=== PATIENT | male | born 1975 | race Caucasian/White ===

== ENCOUNTER 2022-02-01 14:20 | Outpatient (REF) | payer OTHER, SELFPAY ==
[2022-02-01 15:08] LABS: Estimated Average Glucose 108 mg/dL; Hemoglobin A1c % 5.4 %
[2022-02-01 15:17] LABS: Alanine Aminotransferase 24 U/L (0-40); Albumin Level 4.6 g/dL (3.5-5.0); Alkaline Phosphatase 84 U/L (39-117); Anion Gap 10 (12-20); Aspartate Amino Transferase 18 U/L (5-37); Bilirubin Total 0.8 mg/dL (0.0-1.0); Blood Urea Nitrogen 17 mg/dL (9-16); Calcium 10.1 mg/dL (8.4-10.2); Carbon Dioxide 30 mmol/L (22-29); Chloride 105 mmol/L (96-108); Cholesterol 244 mg/dL; Estimated Glomerular Filt Rate > 60; Glucose Random 91 mg/dL (60-115); HDL Cholesterol 48 mg/dL; LDL Cholesterol Calculated 171 mg/dl; Potassium 4.4 mmol/L (3.3-5.1); Sodium 141 mmol/L (135-145); Total Protein 7.5 g/dL (6.5-8.0); Triglycerides 129 mg/dL
[2022-02-01 15:41] LABS: Free T4 (Free Thyroxine) 0.89 ng/dL (0.71-1.85); Thyroid Stimulating Hormone 1.49 uIU/mL (0.32-4.0); Vitamin D 25-OH Total 30.4 ng/mL (>30)
[2022-02-01 15:51] LABS: Folate 10.2 ng/mL (> or = 4.0); Vitamin B12 166 pg/mL (200-900)
== END 2022-02-01 14:21 | disposition home or self-care (01) ==
LOC: HO.LAB 14:20
PROVIDERS: PCP Internal Medicine; Visit Provider Internal Medicine
DX: E78.00 Pure hypercholesterolemia, unspecified (principal); T50.Z15A Adverse effect of immunoglobulin, initial encounter
CPT/HCPCS: 36415; 80053; 80061; 82306; 82607; 82746; 83036; 84439; 84443

== ENCOUNTER 2022-02-04 18:49 | Emergency (ER) | payer OTHER, SELFPAY ==
--- NOTE | ~2022-02-04 | CT_ITS ---
EXAMINATION: CT HEAD WITHOUT CONTRAST CLINICAL INFORMATION: Dizziness COMPARISON: None TECHNIQUE: Contiguous axial imaging was performed from the skull base to vertex without intravenous administration of contrast. This CT examination was performed using dose optimization techniques as appropriate, variously including the following: *Automated exposure control *Adjustment of mA and/or kV according to patient size (this includes techniques or standardized protocols for targeted exams where dose is matched to indication/reason for exam; i.e. extremities or head) *Use of iterative reconstruction technique DLP: 760 mGy-cm FINDINGS: There is no evidence of acute intracranial hemorrhage or territorial infarction. No abnormal mass effect or midline shift is seen. Alfonso to white matter differentiation is well preserved. No extra-axial fluid collections are identified. The ventricles are normal in size. Small area of chronic encephalomalacia within the left frontal lobe anteriorly. Old left frontal craniotomies. Osseous structures otherwise unremarkable.. The mastoid air cells and visualized portions of the paranasal sinuses are well aerated. CT/CT head/brain wo con IMPRESSION: No acute intracranial pathology.
[2022-02-04 18:56] VITALS: BP 149/84; PULSE 96; RESP 18; TEMP 36.8; O2SAT 98; BMI 29.0
--- NOTE | 2022-02-04 19:00 | ECG_ITS ---
Test Reason : DIZZINESS Blood Pressure : / mmHG Vent. Rate : 083 BPM Atrial Rate : 083 BPM P-R Int : 162 ms QRS Dur : 094 ms QT Int : 364 ms P-R-T Axes : 057 025 027 degrees QTc Int : 427 ms Normal sinus rhythm with sinus arrhythmia Normal ECG No previous ECGs available Referred By: Generic ED Physician Electronically Signed By:EDU ZAYAS
[2022-02-04 19:11] LABS: MANUAL DIFF FLAG NO
[2022-02-04 19:12] LABS: Basophils Absolute Auto 0.1 X10*3/uL (0.0-0.2); Basophils Percent Auto 0.8 % (0-2); Eosinophils Absolute Auto 0.1 X10*3/uL (0.0-0.4); Eosinophils Percent Auto 1.3 % (0-4); Hematocrit 43.1 % (42.0-52.0); Hemoglobin 14.7 g/dl (14.0-18.0); Imm Gran Abs Auto 0.01 X10*3/uL (0.00-0.03); Imm Gran Pct Auto 0.1 % (0.0-0.4); Lymphocytes Absolute Auto 2.5 X10*3/uL (1.2-4.9); Lymphocytes Percent Auto 28.8 % (20-40); Mean Corpuscular HGB Conc 34.1 g/dl (31.0-36.0); Mean Corpuscular Hemoglobin 30.1 pg (27.0-33.0); Mean Corpuscular Volume 88.3 fL (80.0-98.0); Mean Platelet Volume 10.2 fL (9.4-12.4); Monocytes Absolute Auto 0.5 X10*3/uL (0.1-1.2); Neutrophils Absolute Auto 5.4 x10*3/uL (2.0-8.3); Platelet Count 288 X10*3/uL (160-400); Red Blood Count 4.88 X10*6/uL (4.60-5.80); Red Cell Distribution Width 12.1 % (11.0-16.0); White Blood Count 8.5 X10*3/uL (4.8-10.8)
[2022-02-04 19:26] LABS: Anion Gap 14 (12-20); Blood Urea Nitrogen 12 mg/dL (9-16); Calcium 10.2 mg/dL (8.4-10.2); Carbon Dioxide 28 mmol/L (22-29); Chloride 105 mmol/L (96-108); Creatinine Clr Calc Pharmacy 96.5; Estimated Glomerular Filt Rate > 60; Glucose Random 92 mg/dL (60-115); Potassium 4.1 mmol/L (3.3-5.1); Sodium 143 mmol/L (135-145)
[2022-02-04 19:33] LABS: Troponin-I High Sensitivity < 3.5 ng/L (<3.5-35.0)
--- NOTE | 2022-02-04 22:56 | PC.NURSE ---
patient ambulated fine to room from waiting room . reports an episode of pressure in head that eventually went away . Had another episode of head pressure that had some dizziness that happened today .
--- NOTE | 2022-02-04 23:12 | ED_ITS ---
HPI - Dizziness General Chief Complaint: Dizziness Stated Complaint: Head pressure Time Seen by Provider: 02/04/22 23:12 Source: patient Mode of arrival: ambulatory Limitations: no limitations History of Present Illness HPI Narrative: 2 nights of lightheaded and pressure. Patient does not suffer from headaches, no history of vertigo. Has a long history of anxiety. He is anxious about his ultrasound of his axilla for adenopathy. MD elicited complaint: lightheadedness Onset (ago): day(s) Timing: gradual onset Associated symptoms: denies other symptoms Related Data Home Medications Medication Instructions Recorded Confirmed valacyclovir 1 gram tablet 1,000 mg PO DAILY PRN 01/28/22 01/28/22 (Valtrex) Previous Rx's Medication Instructions Recorded cyanocobalamin (vitamin B-12) 1,000 mcg PO DAILY #30 cap 02/01/22 1,000 mcg capsule Allergies Allergy/AdvReac Type Severity Reaction Status Date / Time bee pollen [BEE STINGS] Allergy Unknown SWELLING Unverified 07/27/20 18:32 PMFSH Past Medical History Medical History Epidural hematoma HSV-1 infection Lyme disease Family History Family History Mother Mental illness in member of household Father Stomach cancer Brother No problems noted. Brother Substance abuse Maternal Aunt Bone cancer Social History Social History Housing: House Alcohol intake: never Patient Tobacco Use Status: Never used Tobacco e-Cigarette/Vaping Use: Never Used Second Hand Smoke Exposure: No Advance Directives: No Advance Directives Information Provided: No service: Yes Current occupational status: employed Current occupational exposures/hazards: No Physical Exam Vital Signs: Vital Signs: Last Vital Signs Temp 98.3 F 02/04/22 18:56 Pulse 87 02/05/22 00:04 Resp 18 02/04/22 18:56 BP 129/80 02/05/22 00:04 Pulse Ox 98 02/04/22 18:56 BMI result Body Mass Index 29.0 Course Reevaluation(s) Reevaluation #1: CT of brain, orthostatics negative, no obvious reasons for dizziness. Will dc patient and have him follow up with PMD Time: 00:39 [facility] - Dizziness Lab Data Result diagrams: 02/04/22 19:06 02/04/22 19:06 Labs: Lab Results 02/04/22 02/04/22 02/04/22 Range/Units 19:06 19:06 19:06 WBC 8.5 (4.8-10.8) X10*3/uL RBC 4.88 (4.60-5.80) X10*6/uL Hgb 14.7 (14.0-18.0) g/dl Hct 43.1 (42.0-52.0) % MCV 88.3 (80.0-98.0) fL MCH 30.1 (27.0-33.0) pg MCHC 34.1 (31.0-36.0) g/dl RDW 12.1 (11.0-16.0) % Plt Count 288 (160-400) X10*3/uL MPV 10.2 (9.4-12.4) fL Immature Gran % (Auto) 0.1 (0.0-0.4) % Neut % (Auto) 63.0 (45-73) % Lymph % (Auto) 28.8 (20-40) % Schuyler % (Auto) 6.0 (2-11) % Eos % (Auto) 1.3 (0-4) % Baso % (Auto) 0.8 (0-2) % Lymph # (Auto) 2.5 (1.2-4.9) X10*3/uL Schuyler # (Auto) 0.5 (0.1-1.2) X10*3/uL Eos # (Auto) 0.1 (0.0-0.4) X10*3/uL Baso # (Auto) 0.1 (0.0-0.2) X10*3/uL Abs Immat Gran (auto) 0.01 (0.00-0.03) X10*3/uL Absolute Neuts (auto) 5.4 (2.0-8.3) x10*3/uL Absolute Nucleated RBC 0.000 (0.0-0.012) X10*3/uL Nucleated RBC % (auto) 0.0 (0.0-0.2) /100WBC Sodium 143 (135-145) mmol/L Potassium 4.1 (3.3-5.1) mmol/L Chloride 105 (96-108) mmol/L Carbon Dioxide 28 (22-29) mmol/L Anion Gap 14 (12-20) BUN 12 (9-16) mg/dL Creatinine 0.99 (0.5-1.4) mg/dL Estim Creat Clear Calc 96.5 Estimated GFR > 60 Random Glucose 92 (60-115) mg/dL Calcium 10.2 (8.4-10.2) mg/dL Troponin I High Sens < 3.5 (<3.5-35.0) ng/L Imaging Data CT scan - head: Radiologist's impression: FINDINGS: There is no evidence of acute intracranial hemorrhage or territorial infarction. No abnormal mass effect or midline shift is seen. Alfonso to white matter differentiation is well preserved. No extra-axial fluid collections are identified. The ventricles are normal in size. Small area of chronic encephalomalacia within the left frontal lobe anteriorly. Old left frontal craniotomies. Osseous structures otherwise unremarkable.. The mastoid air cells and visualized portions of the paranasal sinuses are well aerated. ? CT/CT head/brain wo con IMPRESSION: No acute intracranial pathology. ECG Data Attestation: I personally reviewed and interpreted this ECG as follows: Interpretation: normal sinus rate of 83, no st or twave changes Discharge Plan Discharge Clinical Impression: Dizziness Patient Disposition: Home, Self-Care Instructions: Dizziness (ED), Lightheadedness (ED) Prescriptions: No Action cyanocobalamin (vitamin B-12) 1,000 mcg capsule 1,000 mcg PO DAILY Qty: 30 3RF valacyclovir [Valtrex] 1 gram tablet 1,000 mg PO DAILY PRN0RF Label Comments: hsv I Referrals: Po,eY Crowder MD [Primary Care Provider] - 5 days
[2022-02-05] VITALS: BP 132/80; PULSE 71
[2022-02-05 00:02] VITALS: BP 137/85; PULSE 73
[2022-02-05 00:04] VITALS: BP 129/80; PULSE 87
== END 2022-02-05 01:00 | disposition home or self-care (01) ==
PROVIDERS: Emergency Provider Emergency Medicine; PCP Internal Medicine
DX: R42 Dizziness and giddiness (principal); F41.9 Anxiety disorder, unspecified
CPT/HCPCS: 36415; 70450; 80048; 84484; 85025; 93005; 99284

== ENCOUNTER 2022-02-08 15:34 | Outpatient (REF) | payer OTHER, SELFPAY ==
--- NOTE | ~2022-02-08 | US_ITS ---
EXAMINATION: ULTRASOUND EXTREMITY NONVASCULAR CLINICAL INFORMATION: Bilateral adnexal masses COMPARISON: None TECHNIQUE: Doppler, color and grayscale evaluation of the bilateral adnexa using a linear transducer FINDINGS: No adenopathy or soft tissue mass is seen. US/US extremity nonvascular IMPRESSION: No abnormality seen by ultrasound.
== END 2022-02-08 15:35 | disposition home or self-care (01) ==
LOC: HO.HMGCX 15:34
PROVIDERS: Visit Provider Internal Medicine
DX: R22.30 Localized swelling, mass and lump, unspecified upper limb (principal)
CPT/HCPCS: 76882

== ENCOUNTER 2022-10-04 13:09 | Outpatient (REF) | payer OTHER, SELFPAY ==
[2022-10-04 14:27] LABS: Alanine Aminotransferase 25 U/L (0-40); Albumin Level 4.3 g/dL (3.5-5.0); Alkaline Phosphatase 96 U/L (39-117); Anion Gap 13 (12-20); Aspartate Amino Transferase 22 U/L (5-37); Bilirubin Total 0.7 mg/dL (0.0-1.0); Blood Urea Nitrogen 15 mg/dL (9-16); Calcium 9.7 mg/dL (8.4-10.2); Carbon Dioxide 30 mmol/L (22-29); Chloride 103 mmol/L (96-108); Cholesterol 255 mg/dL; Estimated Glomerular Filt Rate > 60; Glucose Random 80 mg/dL (60-115); HDL Cholesterol 51 mg/dL; LDL Cholesterol Calculated 176 mg/dl; Potassium 4.3 mmol/L (3.3-5.1); Sodium 142 mmol/L (135-145); Total Protein 7.1 g/dL (6.5-8.0); Triglycerides 143 mg/dL
[2022-10-04 14:48] LABS: Prostate Specific Antigen Scr 0.61 ng/mL (<0.05-4.0)
[2022-10-04 14:59] LABS: Folate 13.7 ng/mL (> or = 4.0); Vitamin B12 637 pg/mL (200-900)
== END 2022-10-04 13:10 | disposition home or self-care (01) ==
LOC: HO.LAB 13:09
PROVIDERS: PCP Internal Medicine; Visit Provider Internal Medicine
DX: Z12.5 Encounter for screening for malignant neoplasm of prostate (principal); E78.00 Pure hypercholesterolemia, unspecified
CPT/HCPCS: 36415; 80053; 80061; 82607; 82746; 84153

== ENCOUNTER 2022-11-15 09:02 | Day surgery (SDC) | payer OTHER, SELFPAY ==
[2022-11-12 10:28] VITALS: BMI 28.3
--- NOTE | 2022-11-14 12:17 | P.CONAN_ITS ---
Documented by User: Kami Jose NP 11/14/22 12:18 HPI - Anesthesia Eval Consult details Narrative: 47yo M for Colonoscopy PMFSH Active Problems Active Problems: All Active Problems (Updated 11/12/22 @ 10:23 by Doreen Shepherd, RN) Overweight (BMI 25.0-29.9) (Acute) Immunoglobulin causing adverse effect in therapeutic use (Acute) Axillary mass (Acute) Colon cancer screening (Acute) Anxiety, generalized (Acute) Annual physical exam (Acute) Vitamin B12 deficiency (Acute) Hypercholesterolemia (Acute) Past Medical History Medical History (Updated 11/12/22 @ 10:23 by Doreen Shepherd, ERIC) Anxiety Elevated cholesterol HSV-1 infection Hyperhidrosis Lyme disease Family History Family History Mother Mental illness in member of household Father Stomach cancer Brother No problems noted. Brother Substance abuse Maternal Aunt Bone cancer Surgical History Surgical History Epidural hematoma Social History Social History Housing: House Alcohol intake: never Patient Tobacco Use Status: Never used Tobacco e-Cigarette/Vaping Use: Never Used Second Hand Smoke Exposure: No Use of substances other than those prescribed or required for medical reasons: No Are you DNR?: No Advance Directives: No Advance Directives Information Provided: Yes service: Yes Current occupational status: employed Current occupational exposures/hazards: No Cognitive needs: No Hearing needs: No Vision needs: Yes Meds Allergies Allergy/AdvReac Type Severity Reaction Status Date / Time bee pollen [BEE STINGS] Allergy Mild SWELLING Verified 11/15/22 09:16 Home Medications Medication Instructions Recorded Confirmed Last Taken Type valacyclovir 1 gram tablet 1,000 mg PO DAILY PRN as directed 01/28/22 11/15/22 Unknown History (Valtrex) cyanocobalamin (vitamin B-12) 1,000 mcg PO DAILY 03/14/22 11/15/22 Unknown History 1,000 mcg capsule mecobalamin (vitamin B12) 10,000 5,000 mcg IM 3XW 03/14/22 11/15/22 Unknown History mcg solution for injection Exam Exam Date and Time: November 14, 2022 1217 Height,Weight and Vital Signs: Height 5 ft 7 in Weight 82.1 kg Pertinent Lab Results Pertinent Lab Results: Laboratory Tests 02/04/22 10/04/22 19:06 13:20 WBC 8.5 Hgb 14.7 Hct 43.1 Plt Count 288 Sodium 142 Potassium 4.3 Chloride 103 Carbon Dioxide 30 H BUN 15 Creatinine 1.02 Narrative Narrative: EKG 01/2022 Vent. Rate : 083 BPM ? ? Atrial Rate : 083 BPM ?? P-R Int : 162 ms? QRS Dur : 094 ms ? ? QT Int : 364 ms ? ? ? P-R-T Axes : 057 025 027 degrees ?? QTc Int : 427 ms ? Normal sinus rhythm with sinus arrhythmia Normal ECG No previous ECGs available Assessment and Plan Assessment Anesthesia Assessment: Chart Reviewed Documented by User: Petra Guzman MD 11/15/22 10:22 [facility] Past Medical History Medical History (Updated 11/12/22 @ 10:23 by Doreen Shepherd RN) Anxiety Elevated cholesterol HSV-1 infection Hyperhidrosis Lyme disease Family History Family History Mother Mental illness in member of household Father Stomach cancer Brother No problems noted. Brother Substance abuse Maternal Aunt Bone cancer Family history of problems with anesthesia: No Surgical History Surgical History Epidural hematoma History of Problems with Anesthesia: No Social History Social History Housing: House Alcohol intake: never Patient Tobacco Use Status: Never used Tobacco e-Cigarette/Vaping Use: Never Used Second Hand Smoke Exposure: No Use of substances other than those prescribed or required for medical reasons: No Are you DNR?: No Advance Directives: No Advance Directives Information Provided: Yes service: Yes Current occupational status: employed Current occupational exposures/hazards: No Cognitive needs: No Hearing needs: No Vision needs: Yes Meds Allergies Allergy/AdvReac Type Severity Reaction Status Date / Time bee pollen [BEE STINGS] Allergy Mild SWELLING Verified 11/15/22 09:16 Home Medications Medication Instructions Recorded Confirmed Last Taken Type valacyclovir 1 gram tablet 1,000 mg PO DAILY PRN as directed 01/28/22 11/15/22 Unknown History (Valtrex) cyanocobalamin (vitamin B-12) 1,000 mcg PO DAILY 03/14/22 11/15/22 Unknown History 1,000 mcg capsule mecobalamin (vitamin B12) 10,000 5,000 mcg IM 3XW 03/14/22 11/15/22 Unknown History mcg solution for injection Exam Airway Mallampati Class: II TM Dist: >3cm Neck ROM: Full Heart: rrr Lungs: cta Assessment and Plan Assessment Anesthesia Assessment: Anesthesia Plan Discussed Final Anesthetic Review Family History of Problems with Anesthesia: No History of Problems with Anesthesia: No NPO: Yes ASA Class: II Final Preanesthetic Review: No Changes in Pt Med Stat, Meds/Allgs Chart Reviewed and Consent Obtained/Reviewed Patient Risk: Intermediate Procedure Risk: Intermediate Anesthetic Plan Anesthetic Plan: MAC: Disposition: Standard PACU
[2022-11-15 09:18] VITALS: BMI 29.0
[2022-11-15 09:29] VITALS: BP 132/82; PULSE 80; RESP 16; TEMP 36.6; O2SAT 98
[2022-11-15] MEDS: Lactated Ringers 1,000 ML 100 ML IVCONT (09:41)
--- NOTE | 2022-11-15 10:24 | MHC.SHP ---
Pre-Procedural Eval Section A Date of Service: 11/15/22 The patient is an INPATIENT: No The History & Physical has been completed within 30 days and I have reviewed it.: No Section B Chief Complaint: screening Details of Present Illness: colon cancer screening Relevant Family History (Specify if Yes): Yes Relevant Social History: None Present Medications: see Short Stay Collaborative assessment Medical History: Significant History (HSV-1 infection Lyme disease) History of Previous Operations: Relevant previous surgery/procedure and date(s) ( subdural hematoma) Allergies: Allergies Allergy/AdvReac Type Severity Reaction Status Date / Time bee pollen [BEE STINGS] Allergy Mild SWELLING Verified 11/15/22 09:16 Review of Systems Sugical H&P ROS: Negative: Constitution, Cardiovascular, Respiratory and Gastrointestinal Exam Surgical H&P Exam: Normal: Heart, Normal: Lungs, Normal: Extremities and Normal: Abdomen Plan Diagnosis/Plan: Unchanged I have reviewed the history and physical and performed a pertinent physical examination on my patient. No changes have occurred unless specified. Time Spent With Patient Time: Total time managing care of this patient today ____ minutes.
--- NOTE | 2022-11-15 10:32 | P.BOP_ITS ---
Brief Operative Note Date of Service: 11/15/22 Pre-op diagnosis: colon cancer screening Post-op diagnosis: other ( COLON POLYPS, DIVERTICULOSIS, HEMORRHOIDS) Procedure: COLONOSCOPY TO CECUM WITH BIOPSIES, SNARE POLYPECTOMY AND SUBMUCOSAL INJECTION Surgeon: Shabnam Grove MD Anesthesia: MAC Was an Adult Family Home Program Manager used for this Procedure?: Yes Adult Family Home Program Manager: Neil Paul Estimated blood loss (mL): 0 Pathology: other (A- CECAL POLYP B- SIGMOID COLON POLYP) Condition: stable Disposition: PACU
--- NOTE | 2022-11-15 10:32 | W.PM.OPN ---
Operative Note Operative Note Date of Service: 11/15/22 Narrative: Pre-op diagnosis: colon cancer screening Post-op diagnosis:?other ( COLON POLYPS, DIVERTICULOSIS, HEMORRHOIDS) Surgeon: Shabnam Grove MD Anesthesia:?MAC COLONOSCOPY TILL CECUM WITH BIOPSIES, SNARE POLYPECTOMY AND SUBMUCOSAL INJECTION Consent: Indications for the procedure and potential complications of bleeding, perforation, reaction to medications and missed diagnosis were discussed with the patient and informed consent was obtained. Instrument: Olympus PCF H 190 L variable stiffness pediatric colonoscope Monitoring: Vital signs and clinical assessment, intermittent blood pressure monitoring, continuous EKG monitoring, Pulse oximetry and Carbon Dioxide monitoring were done throughout the procedure. Colon withdrawl time was 25 minutes. Procedure: The patient was placed in the left lateral decubitis position and pre-procedure medications were administered. After a digital rectal examination of the ano-rectum, the video colonoscope was inserted into the rectum and advanced through the colon to the cecum. The colonoscope was slowly withdrawn in a retrograde panoramic fashion and the colon mucosa was carefully examined including a retroflexed view of the rectum. Findings and interventions are described below. Procedure Difficulty: Without difficulty Findings: Terminal Ileum: Not evaluated Cecum: A 12-15 mm sessile polyp adjacent to the appendicular orifice - raised with 5 cc of normal saline and removed with a hot snare. Ascending Colon: Normal Transverse Colon: Normal Descending Colon: Normal Sigmoid Colon: A 7-8 mm diminutive appearing polyp removed with a cold bx. Moderate diverticulosis Rectum: Normal Ano-rectum: Moderate internal hemorrhoids Colon preparation: Good Impression and Post Procedure Diagnosis: Colonoscopy Findings: Two small to medium sized polyps removed Moderate diverticulosis seen in the sigmoid colon Moderate hemorrhoids on retroflexed exam. Plan: Await pathology results Patient has an appointment on in the GI Clinic with 12/06/22 Marielena Wing NP. Repeat Colonoscopy interval based on path results - in 3 years if polyps are adenomatous and 10 years if polyps are hyperplastic. Above findings were reviewed with the patient and colon polyps and diverticulosis handouts were given in the discharge area
[2022-11-15 11:15] VITALS: BP 108/63; PULSE 70; RESP 16; TEMP 36.4; O2SAT 97
[2022-11-15 11:30] VITALS: BP 98/65; PULSE 71; RESP 16; O2SAT 97
[2022-11-15 11:45] VITALS: BP 104/64; PULSE 74; RESP 18; TEMP 36.7; O2SAT 98
== END 2022-11-15 12:18 | disposition home or self-care (01) ==
PROVIDERS: PCP Internal Medicine; Visit Provider Internal Medicine Gastroenterology
PROC: 0DJD8ZZ Inspection of Lower Intestinal Tract, Via Natural or Artificial Opening Endoscopic (ICD-10-PCS; CPT 45378; principal; 2022-11-15 10:00)
DX: Z12.11 Encounter for screening for malignant neoplasm of colon (principal); D12.0 Benign neoplasm of cecum; K63.5 Polyp of colon; K57.30 Diverticulosis of large intestine without perforation or abscess without bleeding; K64.8 Other hemorrhoids; E78.00 Pure hypercholesterolemia, unspecified; E53.8 Deficiency of other specified B group vitamins; F41.1 Generalized anxiety disorder; B00.9 Herpesviral infection, unspecified; Z86.19 Personal history of other infectious and parasitic diseases; Z79.899 Other long term (current) drug therapy
CPT/HCPCS: 45385; 45380; 45381; 88305

== ENCOUNTER 2022-11-20 16:16 | Outpatient (REF) | payer OTHER, SELFPAY ==
[2022-11-22 12:03] LABS: Transglutaminase Ab IgG <1.0 U/mL; Transglutaminase IgA <1.0 U/mL
== END 2022-11-20 16:17 | disposition home or self-care (01) ==
LOC: HO.LAB 16:16
PROVIDERS: PCP Internal Medicine; Visit Provider Nurse Practitioner Family
DX: R10.9 Unspecified abdominal pain (principal)
CPT/HCPCS: 36415; 86364

== ENCOUNTER → 2022-12-06 15:59 | Outpatient (BNVA) | payer OTHER, SELFPAY | PROVIDERS: PCP Internal Medicine; Visit Provider Nurse Practitioner Family | DX: Z13.89 Encounter for screening for other disorder (principal) ==

== ENCOUNTER 2023-04-18 13:49 | Outpatient (REF) | payer OTHER, SELFPAY ==
--- NOTE | ~2023-04-18 | XR_ITS ---
EXAMINATION: XR LUMBOSACRAL SPINE CLINICAL INFORMATION: Low back pain. COMPARISON: None available. TECHNIQUE: Three views of the lumbosacral spine. FINDINGS: Mild degenerative changes are seen with mild disc space narrowing at L4-L5. Some minimal spondylitic endplate osteophytes are present at the superior endplate anteriorly of both of these vertebral bodies. Vertebral body heights are well-maintained. The remainder of the disc spaces are well maintained. No bony destructive lesions. Phleboliths are seen in the pelvis. XR/XR lumbar spine 2-3V IMPRESSION: Mild degenerative changes at L4-L5.
[2023-04-18 15:10] LABS: Alanine Aminotransferase 21 U/L (0-40); Albumin Level 4.4 g/dL (3.5-5.0); Alkaline Phosphatase 89 U/L (39-117); Anion Gap 15 (12-20); Aspartate Amino Transferase 21 U/L (5-37); Bilirubin Total 0.7 mg/dL (0.0-1.0); Blood Urea Nitrogen 17 mg/dL (9-16); Calcium 10.1 mg/dL (8.4-10.2); Carbon Dioxide 28 mmol/L (22-29); Chloride 105 mmol/L (96-108); Cholesterol 225 mg/dL; Estimated Glomerular Filt Rate > 60; Glucose Random 85 mg/dL (60-115); HDL Cholesterol 49 mg/dL; LDL Cholesterol Calculated 151 mg/dl; Potassium 4.6 mmol/L (3.3-5.1); Sodium 143 mmol/L (135-145); Total Protein 7.2 g/dL (6.5-8.0); Triglycerides 128 mg/dL
[2023-04-18 15:40] LABS: Folate 11.4 ng/mL (> or = 4.0); Vitamin B12 460 pg/mL (200-900)
== END 2023-04-18 13:50 | disposition home or self-care (01) ==
LOC: HO.LAB 13:49
PROVIDERS: PCP Internal Medicine; Visit Provider Internal Medicine
DX: M54.50 Low back pain, unspecified (principal); E78.00 Pure hypercholesterolemia, unspecified
CPT/HCPCS: 36415; 72100; 80053; 80061; 82607; 82746

== ENCOUNTER 2023-06-04 15:59 | Outpatient (AMB) | payer OTHER, SELFPAY ==
[2023-06-04 16:04] VITALS: BP 136/71; PULSE 86; BMI 27.6
--- NOTE | 2023-06-04 16:04 | A.OFFVIS_ITS ---
Intake Vital Signs 06/04/23 16:04 Height 5 ft 7.5 in Weight 178 lb 9.191 oz BMI 27.6 BP 136/71 Blood Pressure Location Lt brachial Position Sitting Pulse 86 Intake Visit Reasons: 6 month follow up Intake Note: Fab presents in the office as a 6 month follow up. CC: He states that he is not having any concerns today. 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 Patient will need to return for colorectal screening in 3 years. Patient denies any ill effects from the prep, anesthesia or procedure itself. Tubular adenoma Two tubular adenoma found 1 more than 1 cm. Patient will return in 3 years for colorectal screening. Denies any melena, hematochezia, unintentional weight loss or ribbon like stools. He Diverticulosis Diverticulosis found on colonoscopy. High-fiber diet discussed with patient. Patient can take [id number] fiber therapy if needed. I will see patient in 6 months, sooner on as needed basis is patient is agreeable to this plan and verbalizes understanding of instructions. He was given the opportunity to ask questions all questions answered. ? TODAY'S VISIT Patient is here today for follow-up. Patient reports that he has been doing and denies any GI concerning symptoms. Patient states that he eating plenty fruits and vegetables and is moving his bowels well. Patient incorporates fiber in his diet. Patient is exercising daily. [facility] Medical History Anxiety Colon cancer screening Elevated cholesterol HSV-1 infection Hyperhidrosis Lyme disease Surgical History Epidural hematoma Hx of colonoscopy Family History Mother Mental illness in member of household Father Stomach cancer Brother No problems noted. Brother Substance abuse Maternal Aunt Bone cancer Social History Housing: House Alcohol intake: never Patient Tobacco Use Status: Never used Tobacco e-Cigarette/Vaping Use: Never Used Second Hand Smoke Exposure: No service: Yes Current occupational status: employed Current occupational exposures/hazards: No Cognitive needs: No Hearing needs: No Vision needs: Yes Review of Systems Const Denies weight gain and Denies weight loss ENT Reports no additional complaints, Denies dysphagia and Denies odynophagia Card Reports no additional complaints Resp Reports no additional complaints GI Denies abdominal pain, Denies belching, Denies melena, Denies bloating, Denies change in bowel habits, Denies dysphagia, Denies excessive flatus, Denies dyspepsia, Denies heartburn, Denies diarrhea, Denies loose stools, Denies nausea, Denies odynophagia and Denies vomiting Reports no additional complaints Musc Reports no additional complaints Neuro Reports no additional complaints Psych Reports no additional complaints Endo Reports no additional complaints Physical Exam Vital Signs: Last Vital Signs Pulse 86 06/04/23 16:04 BP 136/71 06/04/23 16:04 BMI result Body Mass Index 27.6 Const General: healthy appearing, no acute distress and well developed Nutritional Appearance: well nourished Orientation/consciousness: patient oriented x3 HEENT Head: Yes normal to inspection, Yes normocephalic and Yes atraumatic Face and sinus: Yes normal facial exam Mouth: Normal oral and palatal mucosa present Throat: Yes posterior oropharynx normal, Yes tonsils normal and Yes uvula midline Eyes General: appearance normal, both eyes and all related structures Neck Neck: Yes normal visual inspection, Yes full ROM and Yes trachea midline Thyroid: Thyroid normal Resp Effort & Inspection: normal respiratory effort, able to speak in complete sentences, no tracheal deviation and symmetric chest movement Auscultation: clear to auscultation bilaterally Cardio Rate: regular rate Heart sounds: S1 normal heart sound present and S2 normal heart sound present GI Inspection: Yes normal to inspection and No distended Palpation (GI): Soft to palpation, not firm, nontender and No hepatosplenomegaly present Auscultation: normal bowel sounds General: Yes no CVA tenderness Back/Spine/Pelvis Back: no CVA tenderness Skin General skin exam: elasticity normal, turgor normal and dry skin Neuro General: patient oriented x3 Psych Appearance: grossly normal Mental Status: mental status grossly normal Speech and movement: Normal speech and movement present Assessment & Plan Assessment & Plan (1) Diverticulosis: Code(s): K57.90 - Diverticulosis of intestine, part unspecified, without perforation or abscess without bleeding Plan: Continue high-fiber diet. Patient will return to the office on as needed basis. Denies any GI concerning symptoms. Will have colonoscopy in November of 2025, sooner if clinically necessary. Patient is agreeable to plan of care and verbalizes understanding of instructions. He was given the opportunity to ask questions and all questions answered. Thank you for allowing me to participate in his care Coding Level of Care Code Est Pt Level 3 (32532) Diagnoses Diverticulosis K57.90 Time Spent (min) 25 Comment 15 minutes spent with patient and additional 10 minutes spent reviewing his records
== END 2023-06-04 16:38 | disposition home or self-care (01) ==
PROVIDERS: Visit Provider Nurse Practitioner Family
DX: K57.90 Diverticulosis of intestine, part unspecified, without perforation or abscess without bleeding (principal)
CPT/HCPCS: 99213

== ENCOUNTER → 2023-06-04 15:59 | Outpatient (BNVA) | payer OTHER, SELFPAY | PROVIDERS: Visit Provider Nurse Practitioner Family ==

== ENCOUNTER 2023-06-17 16:23 | Outpatient (REF) | payer OTHER, SELFPAY ==
[2023-06-18 04:51] LABS: HBsAGNum1 0.39 S/CO (0.00-0.99); Hepatitis B Core Antibody Nonreactive (Nonreactive); Hepatitis B Surface Antigen Negative (Negative); ~HepC Num1 0.05 S/CO (0.00-0.79); ~Hepatitis C Antibody Nonreactive (Nonreactive)
[2023-06-18 05:59] LABS: HBS Num3 8.68 mIU/mL (0-7.99); ~Hepatitis B Surface Antibody GRAYZONE (Nonreactive)
[2023-06-19 07:13] LABS: Mumps Virus IgG Antibody <9.00 AU/mL
[2023-06-19 07:28] LABS: Rubella IgG Antibody <0.90 Index; Varicella IgG Antibody >4000.00 index
[2023-06-19 12:23] LABS: TS Negative Control Passed; TS Panel A 1; TS Panel B 0; TS Positive Control Passed; TSpotTB Negative (Negative)
== END 2023-06-17 16:24 | disposition home or self-care (01) ==
LOC: HO.LAB 16:23
PROVIDERS: PCP Internal Medicine; Visit Provider Internal Medicine
DX: Z02.0 Encounter for examination for admission to educational institution (principal); R79.89 Other specified abnormal findings of blood chemistry
CPT/HCPCS: 36415; 86481; 86704; 86706; 86735; 86762; 86765; 86787; 86803; 87340

== ENCOUNTER 2024-04-03 10:42 | Outpatient (REF) | payer OTHER, SELFPAY ==
[2024-04-03 10:51] LABS: MANUAL DIFF FLAG NO
[2024-04-03 10:58] LABS: Basophils Absolute Auto 0.1 X10*3/uL (0.0-0.2); Basophils Percent Auto 1.2 % (0-2); Eosinophils Absolute Auto 0.3 X10*3/uL (0.0-0.4); Hematocrit 41.4 % (42.0-52.0); Hemoglobin 14.4 g/dl (14.0-18.0); Imm Gran Abs Auto 0.01 X10*3/uL (0.00-0.03); Imm Gran Pct Auto 0.1 % (0.0-0.4); Lymphocytes Absolute Auto 2.6 X10*3/uL (1.2-4.9); Lymphocytes Percent Auto 37.3 % (20-40); Mean Corpuscular HGB Conc 34.8 g/dl (31.0-36.0); Mean Corpuscular Hemoglobin 30.5 pg (27.0-33.0); Mean Corpuscular Volume 87.7 fL (80.0-98.0); Mean Platelet Volume 10.5 fL (9.4-12.4); Monocytes Absolute Auto 0.5 X10*3/uL (0.1-1.2); Monocytes Percent Auto 7.1 % (2-11); Neutrophils Absolute Auto 3.4 x10*3/uL (2.0-8.3); Neutrophils Percent Auto 49.3 % (45-73); Platelet Count 236 X10*3/uL (160-400); Red Blood Count 4.72 X10*6/uL (4.60-5.80); White Blood Count 6.9 X10*3/uL (4.8-10.8)
[2024-04-03 11:37] LABS: Alanine Aminotransferase 20 U/L (0-40); Albumin Level 4.3 g/dL (3.5-5.0); Alkaline Phosphatase 84 U/L (39-117); Anion Gap 14 (12-20); Aspartate Amino Transferase 20 U/L (5-37); Bilirubin Total 0.5 mg/dL (0.0-1.0); Blood Urea Nitrogen 16 mg/dL (9-16); Calcium 9.6 mg/dL (8.4-10.2); Carbon Dioxide 28 mmol/L (22-29); Chloride 106 mmol/L (96-108); Cholesterol 226 mg/dL (<200); Estimated Glomerular Filt Rate > 60; Glucose Random 95 mg/dL (60-115); HDL Cholesterol 50 mg/dL (>40); LDL Cholesterol Calculated 150 mg/dL (<100); Potassium 4.3 mmol/L (3.3-5.1); Sodium 144 mmol/L (135-145); Total Protein 7.2 g/dL (6.5-8.0); Triglycerides 130 mg/dL (<150)
[2024-04-03 11:53] LABS: Free T4 (Free Thyroxine) 0.82 ng/dL (0.71-1.85); Thyroid Stimulating Hormone 1.63 uIU/mL (0.32-4.0)
[2024-04-03 12:12] LABS: Folate 10.2 ng/mL (> or = 4.0)
[2024-04-03 13:39] LABS: Vitamin B12 330 pg/mL (200-900)
== END 2024-04-03 10:43 | disposition home or self-care (01) ==
LOC: HO.LAB 10:42
PROVIDERS: PCP Internal Medicine; Visit Provider Internal Medicine
DX: E78.00 Pure hypercholesterolemia, unspecified (principal)
CPT/HCPCS: 36415; 80053; 80061; 82607; 82746; 84439; 84443; 85025

== ENCOUNTER 2024-04-06 16:06 | Outpatient (AMB) | payer OTHER, SELFPAY ==
--- NOTE | 2024-04-06 16:17 | A.OFFPC_ITS ---
Vital Signs 04/06/24 16:19 Height 5 ft 7.5 in Weight 181 lb BMI 27.9 BP 126/66 Blood Pressure Location Lt brachial Position Sitting Pulse 80 Pulse Source Pulse Oximeter Pulse Oximetry (%) 96 Oxygen Delivery Method Room Air Intake Visit Reasons: pe Intake Note: Patient is here today for a physical. Signal Wirer Required: No Air Conditioning Manager: Not Required per policy Accompanied by: Self / Same As Patient Allergies bee pollen [BEE STINGS] Allergy (Mild, Verified 04/06/24 16:18) SWELLING Medication List - Last Reconciled 04/06/24 by Ye Dillard MD cholecalciferol (vitamin D3) 125 mcg PO DAILY Tobacco use date assessed: 04/06/24 Dental Screening Dental Screen Date: 04/06/24 Did you have a dental visit in the last 12 months?: Yes Did you have a dental problem in the last 6 months where you did not have access to dental care?: No Was dental information given to patient?: Patient has dentist HPI pe HPI Details 49-year-old overweight male with a histo ry of hypercholesterolemia coming in for physical exam. Patient was referred to dermatology due to nevi and had low back pain and x-ray requested. Also noted elevated blood pressure which has gotten normal. 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 Brother Substance abuse Maternal Aunt Bone cancer Maternal Grandmother Myocardial infarct Social History Housing: House Alcohol intake: never Patient Tobacco Use Status: Never used Tobacco e-Cigarette/Vaping Use: Never Used Second Hand Smoke Exposure: No service: Yes Current occupational status: employed Current occupational exposures/hazards: No Cognitive needs: No Hearing needs: No Vision needs: Yes (Glasses) Questionnaire PHQ-9 Over the last 2 weeks, how often have you been bothered by any of the following problems? 1. Little interest or pleasure in doing things: not at all 2. Feeling down, depressed, or hopeless: not at all 3. Trouble falling or staying asleep, or sleeping too much: not at all 4. Feeling tired or having little energy: not at all 5. Poor appetite or overeating: not at all 6. Feeling bad about yourself - or that you are a failure or have let yourself or your family down: not at all 7. Trouble concentrating on things, such as reading the newspaper or watching television: not at all 8. Moving or speaking so slowly that other people could have noticed. Or the opposite - being so fidgety or restless that you have been moving around a lot more than usual: not at all 9. Thoughts that you would be better off or of hurting yourself in some way: not at all Total score: 0 Depression Screening Interpretation: Negative Depression Screening Done: Yes Source: Developed by Drs. Rodney Bell, Cassie Quezada, Mehrdad Ramírez and colleagues, with an educational bill from [employer]. Thrive Questionnaire Date Thrive assessed: 04/06/24 I am a: Patient What is your living situation today?: I have a steady place to live Within the past 12 months, did the food you bought not last and you didn't have the money to get more?: Never true Within the past 12 months, did you worry whether your food would run out before you got money to buy more?: Never true Do you have trouble paying for medicines?: No Do you have trouble getting transportation to medical appointments?: No Do you have trouble paying your heating and electricity bill?: No Do you have trouble taking care of your child, family member or friend?: No Do you have trouble with day-to-day activities such as bathing, preparing meals, shopping, managing finances, etc.?: No Are you currently unemployed and looking for a job?: No Are you interested in more education?: No Currently or been in a relationship where the following occur: no concerns reported THRIVE Score: 0 AUDIT C Alcohol Use Questionnaire (AUDIT-C) 1. How often do you have a drink containing alcohol?: Never 2. How many drinks containing alcohol do you have on a typical day when you are drinking?: 1 or 2 Total Score: 0 ANNA-7 AMB Questionnaire ANNA-7 Date ANNA - 7 assessed: 04/06/24 Feeling nervous, anxious, or on edge: 0 = Not at all Not being able to stop or control worryin = Not at all Worrying too much about different things: 0 = Not at all Trouble relaxin = Not at all Being so restless that it is hard to sit still: 0 = Not at all Becoming easily annoyed or irritable: 0 = Not at all Feeling afraid as if something awful might happen: 0 = Not at all Total ANNA-7 score (0-4 normal; 5-9 mild; 10-14 moderate; 15-21 severe): 0 Source: Developed by Drs. Rodney Bell, Cassie Quezada, Mehrdad Ramírez and colleagues, with an educational bill from [employer]. Review of Systems Const Denies poor appetite and Denies weakness Eyes Denies no additional complaints ENT Reports Normal hearing present, Denies dizziness, Denies nasal congestion, Denies tinnitus and Denies sore throat Card Denies chest pain, Denies syncope, Denies rapid heart rate and Denies dyspnea Resp Denies cough and Denies dyspnea GI Denies change in stool character, Reports constipation, Denies diarrhea, Denies nausea and Denies vomiting Denies dysuria and Denies urinary frequency Neuro Reports Normal hearing present, Denies confusion, Denies dizziness, Denies syncope and Denies weakness Psych Denies confusion Physical exam (Primary Care) Vital Signs: Last Vital Signs Pulse 80 04/06/24 16:19 BP 126/66 04/06/24 16:19 Pulse Ox 96 04/06/24 16:19 Oxygen Delivery Method Room Air 04/06/24 16:19 BMI result Body Mass Index 27.9 Tobacco/Smoking Status: Tobacco use Status Tobacco use date assessed 04/06/24 04/06/24 16:23 Patient Tobacco Use Status Never used Tobacco 04/06/24 16:23 e-Cigarette/Vaping Use Never Used 04/06/24 16:23 PHQ-9: PHQ-9 Score PHQ-9: Total score 0 04/06/24 16:23 Depression Screening Interpretation: Negative Thrive Assessment: Date of Thrive Assessment Date Thrive assessed 04/06/24 04/06/24 16:23 Currently or been in a relationship where the following occur: no concerns reported Const General: No confusion Orientation/consciousness: No confusion HENMT Head: Yes normocephalic Ears: external ears normal and TM's normal bilaterally Face and sinus: Yes normal facial exam Mouth: moist mucous membranes Throat: Yes tonsils normal Eyes Conjunctivae: conjunctivae normal Pupils: Equal, round and reactive pupils present and Pupil accommodation reflex normal Direct Ophthalmoscopy: normal light reflex Neck Neck: No lymphadenopathy Thyroid: Thyroid normal Chest Chest palpation & inspection: normal inspection of the chest Resp Effort & Inspection: normal respiratory effort and no audible wheezes Auscultation: clear to auscultation bilaterally, no crackles, no wheezes and lung sounds not diminished Cardio Rate: regular rate Rhythm: regular rhythm Peripheral pulses: radial pulses present and dorsalis pedis present GI Palpation (GI): no masses Auscultation: normal bowel sounds and normoactive bowel sounds Rectal Exam - Male: Yes deferred Skin General skin exam: no rashes or lesions noted Rashes: no rashes Neuro General: No confusion Cranial nerves: Yes Equal, round and reactive pupils present and Yes Normal hearing present Cognition (Neuro): normal cognition Gait exam (Neuro): Normal gait present Motor exam (neuro): 5/5 motor strength present throughout Deep tendon reflexes (DTR's): Right brachioradialis reflex intensity grade: 2+, Left brachioradialis reflex intensity grade: 2+, Right patellar reflex intensity grade: 2+ and Left patellar reflex intensity grade: 2+ Extrem General: No edema Assessment and Plan Assessment & Plan (1) Annual physical exam: Code(s): Z00.00 - Encounter for general adult medical examination without abnormal findings (2) Hypercholesterolemia: Code(s): E78.00 - Pure hypercholesterolemia, unspecified Plan: Avoid fried foods, chicken skin, eggs, butter margarine, pastries and meat. Be it pork or beef they have a lot of cholesterol LDL goal of less than 130 and triglyceride of less than 150. (3) Overweight (BMI 25.0-29.9): Code(s): E66.3 - Overweight Plan: Diet and exercise Orders: Orders Lipid Panel 1 Year E78.00 - Pure hypercholesterolemia, unspecified Prostate Specific Antigen Scr 1 Year E78.00 - Pure hypercholesterolemia, unspecified Complete Blood Count Auto Diff 1 Year E78.00 - Pure hypercholesterolemia, unspecified Comprehensive Met. Panel 1 Year E78.00 - Pure hypercholesterolemia, unspecified Free T4 (Free Thyroxine) 1 Year E78.00 - Pure hypercholesterolemia, unspecified Thyroid Stimulating Hormone 1 Year E78.00 - Pure hypercholesterolemia, unspecified Vitamin B12 and Folate 1 Year E78.00 - Pure hypercholesterolemia, unspecified Vitamin D 25-OH Total 1 Year E78.00 - Pure hypercholesterolemia, unspecified Coding Level of Care Code Est Pt Prev Care 40-64y(40538) Diagnoses Annual physical exam Z00.00 Hypercholesterolemia E78.00 Overweight (BMI 25.0-29.9) E66.3
[2024-04-06 16:19] VITALS: BP 126/66; PULSE 80; O2SAT 96; BMI 27.9
== END 2024-04-06 17:21 | disposition home or self-care (01) ==
PROVIDERS: Visit Provider Internal Medicine
DX: Z00.00 Encounter for general adult medical examination without abnormal findings (principal); E78.00 Pure hypercholesterolemia, unspecified; E66.3 Overweight
CPT/HCPCS: 99396

== ENCOUNTER 2024-09-03 23:36 | Emergency (ER) | payer OTHER, SELFPAY ==
[2024-09-03 23:37] VITALS: BP 123/81; PULSE 79; RESP 20; TEMP 36.6; O2SAT 98; BMI 27.4
[2024-09-04 01:25] VITALS: BP 123/81; PULSE 79; RESP 16; TEMP 36.6; O2SAT 98
--- NOTE | 2024-09-04 01:26 | PC.NURSE ---
Dr. Wolfe into assess pt, clean laceration, dressing applied, positive cms, reviewed discharge instructions with pt, pt verbalized understanding.
--- NOTE | 2024-09-04 01:28 | ED.WOUNDLAC ---
HPI - Wound/Laceration General Chief Complaint: Wound/Laceration Stated Complaint: finger laceration Time Seen by Provider: 09/04/24 01:01 History of Present Illness ED Provider: suha GUSTAFSON narrative: Patient apparently accelerated to cut his left index finger nail by the knife prior to arrival up-to-date in tetanus partial laceration of the nail still attached to the nail bed Related Data Home Medications ?Medication ?Instructions ?Recorded ?Confirmed cholecalciferol (vitamin D3) 125 125 mcg PO DAILY 04/06/24 04/06/24 mcg (5,000 unit) capsule Previous Rx's ?Medication ?Instructions ?Recorded valacyclovir 1 gram tablet 1,000 mg PO DAILY 10 days #10 tabs 08/20/24 (Valtrex) Allergies Allergy/AdvReac Type Severity Reaction Status Date / Time bee pollen [BEE STINGS] Allergy Mild SWELLING Verified 09/03/24 23:40 Review of Systems Review of Systems: Yes all other systems are reviewed and are negative PMFSH Past Medical History Medical History Blood pressure elevated without history of HTN Hyperhidrosis Elevated cholesterol Anxiety Colon cancer screening Lyme disease HSV-1 infection Surgical History Hx of colonoscopy Epidural hematoma Family History Family History Mother Mental illness in member of household Father Stomach cancer Brother No problems noted. Brother Substance abuse Maternal Aunt Bone cancer Maternal Grandmother Myocardial infarct Social History Social History Housing: House Alcohol intake: never Patient Tobacco Use Status: Never used Tobacco Smoked in Last 30 Days: No e-Cigarette/Vaping Use: Never Used Second Hand Smoke Exposure: No Use of substances other than those prescribed or required for medical reasons: No Advance Directives: No service: Yes Current occupational status: employed Current occupational exposures/hazards: No Cognitive needs: No Hearing needs: No Vision needs: Yes (Glasses) Physical Exam Vital Signs: Vital Signs: Last Vital Signs Temp 97.9 F 09/04/24 01:25 Pulse 79 09/04/24 01:25 Resp 16 09/04/24 01:25 BP 123/81 09/04/24 01:25 Pulse Ox 98 09/04/24 01:25 O2 Del Method Room Air 09/04/24 01:25 BMI result Body Mass Index 27.4 Discharge Plan Discharge Clinical Impression: Laceration of index finger with damage to nail Patient Disposition: Home, Self-Care Instructions: Finger Laceration (ED) Additional Instructions: Local care as advised Wear the splint for protection It should heal in 7-10 days Prescriptions: No Action valacyclovir [Valtrex] 1 gram tablet 1,000 mg PO DAILY 10 Days Qty: 10 2RF cholecalciferol (vitamin D3) 125 mcg (5,000 unit) capsule 125 mcg PO DAILY Interventions: ED Discharge Assessment Last Done: 09/04/24 01:25 Discharge Date/Time: 09/04/24 01:26 Print Language: Greenlandic
== END 2024-09-04 01:26 | disposition home or self-care (01) ==
PROVIDERS: Emergency Provider Internal Medicine; PCP Internal Medicine
DX: S61.311A Laceration without foreign body of left index finger with damage to nail, initial encounter (principal); W26.0XXA Contact with knife, initial encounter; E78.00 Pure hypercholesterolemia, unspecified; Y93.9 Activity, unspecified; Y92.9 Unspecified place or not applicable; Y99.9 Unspecified external cause status
CPT/HCPCS: 99283; 99284

== ENCOUNTER 2025-04-18 14:51 | Outpatient (REF) | payer OTHER, SELFPAY ==
[2025-04-18 15:03] LABS: MANUAL DIFF FLAG NO
[2025-04-18 15:25] LABS: Hematocrit 41.6 % (42.0-52.0); Hemoglobin 14.2 g/dl (14.0-18.0); Mean Corpuscular HGB Conc 34.1 g/dl (31.0-36.0); Mean Corpuscular Hemoglobin 29.8 pg (27.0-33.0); Mean Corpuscular Volume 87.2 fL (80.0-98.0); Red Blood Count 4.77 X10*6/uL (4.60-5.80); Red Cell Distribution Width 11.8 % (11.0-16.0); White Blood Count 6.7 X10*3/uL (4.8-10.8)
[2025-04-18 15:26] LABS: Basophils Absolute Auto 0.1 X10*3/uL (0.0-0.2); Basophils Percent Auto 1.2 % (0-2); Eosinophils Absolute Auto 0.3 X10*3/uL (0.0-0.4); Imm Gran Abs Auto 0.02 X10*3/uL (0.00-0.03); Imm Gran Pct Auto 0.3 % (0.0-0.4); Lymphocytes Absolute Auto 2.7 X10*3/uL (1.2-4.9); Lymphocytes Percent Auto 39.5 % (20-40); Mean Platelet Volume 10.4 fL (9.4-12.4); Monocytes Absolute Auto 0.5 X10*3/uL (0.1-1.2); Monocytes Percent Auto 7.6 % (2-11); Neutrophils Absolute Auto 3.2 x10*3/uL (2.0-8.3); Neutrophils Percent Auto 47.4 % (45-73); Platelet Count 263 X10*3/uL (160-400)
[2025-04-18 15:58] LABS: Alanine Aminotransferase 22 U/L (0-40); Albumin Level 4.7 g/dL (3.5-5.0); Anion Gap 13 (12-20); Aspartate Amino Transferase 24 U/L (5-37); Bilirubin Total 0.8 mg/dL (0.0-1.0); Blood Urea Nitrogen 14 mg/dL (9-16); Calcium 9.8 mg/dL (8.4-10.2); Carbon Dioxide 28 mmol/L (22-29); Chloride 106 mmol/L (96-108); Cholesterol 182 mg/dL (<200); Estimated Glomerular Filt Rate > 60; Glucose Random 90 mg/dL (60-115); HDL Cholesterol 46 mg/dL (>40); LDL Cholesterol Calculated 119 mg/dL (<100); Sodium 143 mmol/L (135-145); Total Protein 7.3 g/dL (6.5-8.0); Triglycerides 89 mg/dL (<150)
[2025-04-18 16:16] LABS: Alkaline Phosphatase 83 U/L (39-117); Free T4 (Free Thyroxine) 0.92 ng/dL (0.71-1.85); Thyroid Stimulating Hormone 0.85 uIU/mL (0.32-4.0); Vitamin D 25-OH Total 27.6 ng/mL (>30)
[2025-04-18 16:22] LABS: Folate 10.5 ng/mL (> or = 4.0); Vitamin B12 272 pg/mL (200-900)
== END 2025-04-18 14:52 | disposition home or self-care (01) ==
LOC: HO.LAB 14:51
PROVIDERS: PCP Internal Medicine; Visit Provider Internal Medicine
DX: Z12.5 Encounter for screening for malignant neoplasm of prostate (principal); E78.00 Pure hypercholesterolemia, unspecified
CPT/HCPCS: 36415; 80053; 80061; 82306; 82607; 82746; 84153; 84439; 84443; 85025

== ENCOUNTER 2025-04-20 11:38 | Outpatient (AMB) | payer OTHER, SELFPAY ==
--- NOTE | 2025-04-20 11:44 | MHC.PC.OV ---
Vital Signs 04/20/25 11:45 Height 5 ft 8 in Weight 178 lb 2 oz BMI 27.1 BP 120/60 Blood Pressure Location Lt brachial Position Sitting Pulse 70 Pulse Source Pulse Oximeter Temp 97.3 F Temp Source Temporal Artery Scan Pulse Oximetry (%) 96 Oxygen Delivery Method Room Air Intake Visit Reasons: PE Intake Note: Patient is here today for a physical. Sales Consultant Residential Manager Required: No Chiller Operator: Not Required per policy Accompanied by: Self / Same As Patient Allergies bee pollen [BEE STINGS] Allergy (Mild, Verified 04/20/25 11:45) SWELLING Medication List - Last Reconciled 04/20/25 by Ye Dillard MD cholecalciferol (vitamin D3) 125 mcg PO DAILY valacyclovir (Valtrex) 1,000 mg PO DAILY 10 days Tobacco use date assessed: 04/20/25 Dental Screening Dental Screen Date: 04/20/25 Did you have a dental visit in the last 12 months?: Yes Did you have a dental problem in the last 6 months where you did not have access to dental care?: No Was dental information given to patient?: Patient has dentist HPI PE HPI Details occ nasal congestion PFSH Medical History Blood pressure elevated without history of HTN Hyperhidrosis Elevated cholesterol Anxiety Colon cancer screening Lyme disease HSV-1 infection Surgical History Hx of colonoscopy Epidural hematoma Family History (Updated 04/20/25 @ 12:15 by Ye Dillard MD) Mother Mental illness in member of household Breast cancer Father Stomach cancer Brother No problems noted. Brother Substance abuse Maternal Aunt Bone cancer Maternal Grandmother Myocardial infarct Social History Housing: House Alcohol intake: never Patient Tobacco Use Status: Never used Tobacco e-Cigarette/Vaping Use: Never Used Second Hand Smoke Exposure: No service: Yes Current occupational status: employed Current occupational exposures/hazards: No Cognitive needs: No Hearing needs: No Vision needs: Yes (Glasses) Questionnaire PHQ-9 Over the last 2 weeks, how often have you been bothered by any of the following problems? 1. Little interest or pleasure in doing things: not at all 2. Feeling down, depressed, or hopeless: not at all 3. Trouble falling or staying asleep, or sleeping too much: not at all 4. Feeling tired or having little energy: not at all 5. Poor appetite or overeating: not at all 6. Feeling bad about yourself - or that you are a failure or have let yourself or your family down: not at all 7. Trouble concentrating on things, such as reading the newspaper or watching television: not at all 8. Moving or speaking so slowly that other people could have noticed. Or the opposite - being so fidgety or restless that you have been moving around a lot more than usual: not at all 9. Thoughts that you would be better off or of hurting yourself in some way: not at all Total score: 0 Depression Screening Interpretation: Negative Depression Screening Done: Yes Source: Developed by Drs. Rodney Bell, Cassie Quezada, Mehrdad Ramírez and colleagues, with an educational bill from [email or web address]. Thrive Questionnaire Date Thrive assessed: 04/20/25 I am a: Patient What is your living situation today?: I have a steady place to live Within the past 12 months, did the food you bought not last and you didn't have the money to get more?: Never true Within the past 12 months, did you worry whether your food would run out before you got money to buy more?: Never true Do you have trouble paying for medicines?: No Do you have trouble getting transportation to medical appointments?: No Do you have trouble paying your heating and electricity bill?: No Do you have trouble taking care of your child, family member or friend?: No Do you have trouble with day-to-day activities such as bathing, preparing meals, shopping, managing finances, etc.?: No Are you currently unemployed and looking for a job?: No Are you interested in more education?: I choose not to answer this question Please select the resources that you would like help with: None Currently or been in a relationship where the following occur: No concerns reported THRIVE Score: 0 AUDIT C Alcohol Use Questionnaire (AUDIT-C) 1. How often do you have a drink containing alcohol?: Never Total Score: 0 ANNA-7 AMB Questionnaire ANNA-7 Date ANNA - 7 assessed: 04/20/25 Feeling nervous, anxious, or on edge: 1 = Several days Not being able to stop or control worryin = Not at all Worrying too much about different things: 0 = Not at all Trouble relaxin = Not at all Being so restless that it is hard to sit still: 0 = Not at all Becoming easily annoyed or irritable: 0 = Not at all Feeling afraid as if something awful might happen: 0 = Not at all Total ANNA-7 score (0-4 normal; 5-9 mild; 10-14 moderate; 15-21 severe): 1 Source: Developed by Drs. Rodney Bell, Cassie Quezaad, Mehrdad Ramírez and colleagues, with an educational bill from [email or web address]. Review of Systems Const Denies poor appetite and Denies weakness Eyes Denies no additional complaints ENT Reports Normal hearing present, Denies dizziness, Denies nasal congestion, Denies tinnitus and Denies sore throat Card Denies chest pain, Denies syncope, Denies rapid heart rate and Denies dyspnea Resp Denies cough and Denies dyspnea GI Denies change in stool character, Reports constipation, Denies diarrhea, Denies nausea and Denies vomiting Denies dysuria and Denies urinary frequency Neuro Reports Normal hearing present, Denies confusion, Denies dizziness, Denies syncope and Denies weakness Psych Denies confusion Physical exam (Primary Care) Vital Signs: Last Vital Signs Temp 97.3 F 04/20/25 11:45 Pulse 70 04/20/25 11:45 BP 120/60 04/20/25 11:45 Pulse Ox 96 04/20/25 11:45 Oxygen Delivery Method Room Air 04/20/25 11:45 BMI result Body Mass Index 27.1 Tobacco/Smoking Status: Tobacco use Status Tobacco use date assessed 04/20/25 04/20/25 11:49 Patient Tobacco Use Status Never used Tobacco 04/20/25 11:49 e-Cigarette/Vaping Use Never Used 04/20/25 11:49 PHQ-9: PHQ-9 Score PHQ-9: Total score 0 04/20/25 12:10 Depression Screening Interpretation: Negative Thrive Assessment: Date of Thrive Assessment Date Thrive assessed 04/20/25 04/20/25 11:49 Currently or been in a relationship where the following occur: No concerns reported Const General: alert and awake; No confusion Orientation/consciousness: No confusion HENMT Head: Yes normocephalic Ears: external ears normal and TM's normal bilaterally Face and sinus: Yes normal facial exam Mouth: moist mucous membranes Throat: Yes tonsils normal Eyes Conjunctivae: conjunctivae normal Pupils: Equal, round and reactive pupils present and Pupil accommodation reflex normal Direct Ophthalmoscopy: normal light reflex Neck Neck: No lymphadenopathy Thyroid: Thyroid normal Chest Chest palpation & inspection: normal inspection of the chest Resp Effort & Inspection: normal respiratory effort and no audible wheezes Auscultation: clear to auscultation bilaterally, no crackles, no wheezes and lung sounds not diminished Cardio Rate: regular rate Rhythm: regular rhythm Peripheral pulses: radial pulses present and dorsalis pedis present GI Palpation (GI): no masses Auscultation: normal bowel sounds and normoactive bowel sounds Rectal Exam - Male: Yes deferred Skin General skin exam: no rashes or lesions noted Rashes: no rashes Neuro General: deep tendon reflexes 2+ bilaterally and No confusion Cranial nerves: Yes Equal, round and reactive pupils present, Yes Midline tongue present, Yes Normal hearing present and Yes Ability to bilaterally elevate shoulders present Cognition (Neuro): normal cognition Gait exam (Neuro): Normal gait present Motor exam (neuro): 5/5 motor strength present throughout Deep tendon reflexes (DTR's): Right brachioradialis reflex intensity grade: 2+, Left brachioradialis reflex intensity grade: 2+, Right patellar reflex intensity grade: 2+ and Left patellar reflex intensity grade: 2+ Extrem General: No edema Coding Level of Care Code Est Pt Prev Care 40-64y(10523) Diagnoses Annual physical exam Z00.00 Hypercholesterolemia E78.00 Overweight (BMI 25.0-29.9) E66.3 Tubular adenoma of colon D12.6 Anxiety, generalized F41.1 Assessment & Plan Assessment & Plan (1) Annual physical exam: Code(s): Z00.00 - Encounter for general adult medical examination without abnormal findings Category: Medical Plan: Patient is advised to eat healthy, keep well hydrated, keep active and have adequate sleep. (2) Hypercholesterolemia: Code(s): E78.00 - Pure hypercholesterolemia, unspecified Category: Medical Plan: Avoid fried foods, chicken skin, eggs, butter margarine, pastries and meat. Be it pork or beef they have a lot of cholesterol repeat blood work is within normal limits. LDL goal of less than 130 (3) Overweight (BMI 25.0-29.9): Code(s): E66.3 - Overweight Category: Medical Plan: Diet and exercise (4) Tubular adenoma of colon: Comment: November 2022 Code(s): D12.6 - Benign neoplasm of colon, unspecified Category: Medical Plan: Patient is up-to-date with colonoscopy with the next colonoscopy in 2025 (5) Anxiety, generalized: Code(s): F41.1 - Generalized anxiety disorder Category: Medical Plan: Stable Plan History of Present Illness The patient is a 50-year-old male presenting for a routine physical examination, with a known history of hypercholesterolemia, generalized anxiety disorder, and tubular adenoma of the colon. His last colonoscopy in November 2022 was clear, with the next one scheduled for 2025. Recently, he required emergency care for an index finger laceration which has healed. Blood work shows normal counts and improved cholesterol levels but reveals mild vitamin B12 and D deficiencies due to inconsistent supplement intake. Family history notes newly diagnosed breast cancer in his mother at 84. He engages in regular walking and abstains from alcohol, tobacco, and recreational drugs, maintaining overall wellness with noted occasional stress-related chest tightness and nasal congestion. Health Maintenance - Cholesterol management with LDL goal <130 mg/dL; current LDL 119 mg/dL - Scheduled repeat colonoscopy for 2025 for monitoring post-adenoma removal - Prescription of vitamin D and B12 supplementation for deficiency management - Discussed the benefits and possible insurance coverage of the shingles vaccine - Encouraged regular physical activity and provided dietary advice for cholesterol control [place] vitamin D levels due to limited sunshine in colder months - Engages in regular walking for exercise - Admitted to non-regular intake of Vitamin D supplements due to a busy schedule - Abstains from alcohol, tobacco, and recreational drugs Review of Systems - Constitutional: Denies dizziness or passing out - Dermatological: Reports occasional skin condition around the eyes, resembling eczema - Eyes: Denies visual changes or difficulty while driving at night - Ears, Nose, Mouth, and Throat: Reports occasional nasal tightness - Cardiovascular: Occasionally feels chest tightness related to stress - Respiratory: Denies shortness of breath, but occasional congestion - Gastrointestinal: Denies heartburn, constipation, or diarrhea; frequency of urination higher during daytime - Genitourinary: Reports stable nocturia, generally one or two times per night - Neurological: Denies unsteadiness, nausea, vomiting, or swallowing problems - Musculoskeletal: No falls or joint swelling noted - Psychiatric: Experiences stress mainly during high workload periods Physical Exam General: Cooperative, healthy appearing, comfortable, no acute distress and well developed Orientation: Patient oriented x3 Limitations: No limitations Head: Normal to inspection Ears: Hearing grossly normal bilaterally Nose: Normal external nose present, but patient reports occasional tightness and congestion Face and sinus: Normal facial exam Eyes: Appearance normal, both eyes and all related structures Neck: Normal visual inspection and Yes full ROM Respiratory: Normal respiratory effort and able to speak in complete sentences. Clear to auscultation bilaterally Cardiovascular: Regular rate and rhythm. Normal S1 and S2 GI: Normal to inspection. Soft to palpation and nontender Skin: No rashes or lesions noted, but patient reports eczema-like symptoms around the eyes Neuro: Patient oriented x3 Extremities: Normal to inspection Results - Labs: Normal CBC, electrolytes, renal and liver functions - Cholesterol: LDL improved at 119 mg/dL, B12 at 272, and Vitamin D at 27 - PSA: Normal Plan For hypercholesterolemia, the patient's LDL is currently satisfactory under the goal of <130 mg/dL. Continued dietary and physical activity modification is advised. The patient is to commence regular vitamin D and supplements exceeding winter intake needs. Scheduled colonoscopy for 2025 as follow-up for colon adenoma is in place. Stress-related symptoms will be monitored, with emphasis on stress management. Although using an allergy nasal spray was suggested for congestion, the plan is to self-monitor and decide if medical intervention is necessary. The possibility of insurance-covered shingles vaccination was communicated. Patient was informed and verbally consented to the use of an ambient scribe for clinic note documentation during this visit. Discussion Notes I discussed various management strategies with the patient, emphasizing the success of his cholesterol management. We reviewed the importance of vitamin D and B12 supplementation, particularly in the winter due to regional sunlight limitations. The necessity of consistent follow-ups for colon adenomas was underscored. I highlighted stress relief techniques due to its noted impact on chest tightness and suggested monitoring for nasal congestion to decide on medication usage if required. Options for a shingles vaccine were presented, with advice to check his insurance coverage. Regular check-ups and maintaining an active lifestyle were strongly advised. Patient Instructions - Keep taking your vitamins D and B12 regularly, especially in winter - Maintain a healthy diet and stay active to help manage cholesterol - Look out for how often you feel nasal congestion and decide if you need extra help - Follow up when it's time for your colonoscopy in 2025 - Manage stress with relaxation exercises, especially during hectic times - Check if your insurance covers the shingles vaccine, as it could be beneficial
[2025-04-20 11:45] VITALS: BP 120/60; PULSE 70; TEMP 36.3; O2SAT 96; BMI 27.1
== END 2025-04-20 12:33 | disposition home or self-care (01) ==
LOC: HO.HMCH 11:39
PROVIDERS: PCP Internal Medicine; Visit Provider Internal Medicine
DX: Z00.00 Encounter for general adult medical examination without abnormal findings (principal); E78.00 Pure hypercholesterolemia, unspecified; E66.3 Overweight; D12.6 Benign neoplasm of colon, unspecified; F41.1 Generalized anxiety disorder

== ENCOUNTER → 2025-04-20 11:38 | Outpatient (BNVA) | payer OTHER, SELFPAY | PROVIDERS: PCP Internal Medicine; Visit Provider Internal Medicine ==

== ENCOUNTER 2025-05-20 10:28 | Outpatient (AMB) | payer OTHER, SELFPAY ==
[2025-05-20 10:32] VITALS: BP 120/78; PULSE 76; TEMP 36.3; O2SAT 98; BMI 26.9
--- NOTE | 2025-05-20 10:32 | A.OFFPC_ITS ---
Vital Signs 3 05/20/25 10:32 Height 5 ft 8 in Weight 177 lb 2 oz BMI 26.9 BP 120/78 Blood Pressure Location Lt brachial Position Sitting Pulse 76 Pulse Source Pulse Oximeter Temp 97.3 F Temp Source Temporal Artery Scan Pulse Oximetry (%) 98 Oxygen Delivery Method Room Air Intake Visit Reasons: Lump in groin area Teaching Dietitian Required: No Accompanied by: Self / Same As Patient Allergies bee pollen (BEE STINGS) Allergy (Mild, Verified 05/20/25 10:33) SWELLING Tobacco use date assessed: 04/20/25 Dental Screening Dental Screen Date: 04/20/25 HPI Lump in groin area 2 HPI0 Details 50-year-old overweight male with a histo ry of hypercholesterolemia generalized anxiety disorder coming in for an acute problem last seen in April 20/2025. Patient's sent a message May 17 for a scrotal mass. Meanwhile blood work was done in 04/18/2025 with normal blood count, normal renal function normal blood sugar liver function cholesterol is better with an LDL of 119 vitamin-D low at 27.6. [facility] Medical History (Updated 05/20/25 @ 10:51 by Ye Dillard MD) Scrotal cyst Blood pressure elevated without history of HTN Hyperhidrosis Elevated cholesterol Anxiety Colon cancer screening Lyme disease HSV-1 infection Surgical History Hx of colonoscopy Epidural hematoma Family History (Updated 04/20/25 @ 12:15 by Ye Dillard MD) Mother Mental illness in member of household Breast cancer Father Stomach cancer Brother No problems noted. Brother Substance abuse Maternal Aunt Bone cancer Maternal Grandmother Myocardial infarct Social History Housing: House Alcohol intake: never Patient Tobacco Use Status: Never used Tobacco e-Cigarette/Vaping Use: Never Used Second Hand Smoke Exposure: No service: Yes Current occupational status: employed Current occupational exposures/hazards: No Cognitive needs: No Hearing needs: No Vision needs: Yes (Glasses) Questionnaire Thrive Questionnaire Date Thrive assessed: 04/20/25 I am a: Patient What is your living situation today?: I have a steady place to live Within the past 12 months, did the food you bought not last and you didn't have the money to get more?: Never true Within the past 12 months, did you worry whether your food would run out before you got money to buy more?: Never true Do you have trouble paying for medicines?: No Do you have trouble getting transportation to medical appointments?: No Do you have trouble paying your heating and electricity bill?: No Do you have trouble taking care of your child, family member or friend?: No Do you have trouble with day-to-day activities such as bathing, preparing meals, shopping, managing finances, etc.?: No Are you currently unemployed and looking for a job?: No Are you interested in more education?: I choose not to answer this question Please select the resources that you would like help with: None Currently or been in a relationship where the following occur: No concerns reported THRIVE Score: 0 ANNA-7 AMB Questionnaire ANNA-7 Date ANNA - 7 assessed: 04/20/25 Source: Developed by Drs. Rodney Bell, Cassie Quezada, Mehrdad Ramírez and colleagues, with an educational bill from [employer]. Physical exam (Primary Care) Vital Signs: Last Vital Signs Temp 97.3 F 05/20/25 10:32 Oxygen Delivery Method Room Air 05/20/25 10:32 BMI result Body Mass Index 26.9 Tobacco/Smoking Status: Tobacco use Status Tobacco use date assessed 04/20/25 05/20/25 10:34 Patient Tobacco Use Status Never used Tobacco 05/20/25 10:34 e-Cigarette/Vaping Use Never Used 05/20/25 10:34 Thrive Assessment: Date of Thrive Assessment Date Thrive assessed 04/20/25 05/20/25 10:34 Currently or been in a relationship where the following occur: No concerns reported Const General: alert; No acute distress Eyes Conjunctivae: conjunctivae normal Resp Auscultation: clear to auscultation bilaterally Cardio Rate: regular rate Rhythm: regular rhythm GI Inspection: Yes normal to inspection Male genitals images: 2 1. Subcentimeter right superior scrotal area mass, no redness no tenderness on palpation Extrem General: Yes normal to inspection and No edema Coding Level of Care Code Est Pt Level 3 (89207) Diagnoses Scrotal cyst L72.9 Assessment & Plan Assessment & Plan (1) Scrotal cyst: Comment: Right posterior Code(s): L72.9 - Follicular cyst of the skin and subcutaneous tissue, unspecified Category: Medical Plan: Patient is advised to get an US of the scrotum for defining the scrotal cyst Right Orders: Orders 2 US scrotum Today L72.9 - Follicular cyst of the skin and subcutaneous tissue, unspecified
== END 2025-05-20 12:57 | disposition home or self-care (01) ==
LOC: HO.HMCH 10:29
PROVIDERS: PCP Internal Medicine; Visit Provider Internal Medicine
DX: L72.9 Follicular cyst of the skin and subcutaneous tissue, unspecified (principal)

== ENCOUNTER 2025-06-28 14:21 | Outpatient (REF) | payer OTHER, SELFPAY ==
--- NOTE | ~2025-06-28 | US_ITS ---
EXAMINATION: US SCROTUM HISTORY: L72.9 - Follicular cyst of the skin and subcutaneous tissue, unspecified. COMPARISON: There are no prior studies available for comparison. FINDINGS: Real-time grayscale ultrasound imaging of the scrotum was performed. RIGHT TESTICLE: The right testis measures 4.6 x 1.9 x 3.5 cm and demonstrates normal homogeneous echotexture. No masses are seen. The right testis demonstrates normal color Doppler flow. RIGHT EPIDIDYMIS: Normal in size, shape, and vascularity. LEFT TESTICLE: The left testis measures 4.4 x 2.1 x 3.0 cm and demonstrates normal homogeneous echotexture. No masses are seen. The left testis demonstrates normal color Doppler flow. LEFT EPIDIDYMIS: Normal in size, shape, and vascularity. There is a 2 mm epididymal head cyst. VARICOCELE: None. HYDROCELE: No significant hydrocele is seen. OTHER COMMENTS: In the right scrotal skin, there is an irregularly shaped hypoechoic nodule measuring 4 x 3 x 4 mm. US/US scrotum IMPRESSION: Irregularly shaped 4 x 3 x 4 mm hypoechoic nodule within the skin of the right hemiscrotum. This could represent a sebaceous cyst, but findings are nonspecific. Otherwise unremarkable scrotal ultrasound.. Electronically signed by: Rodney Scott MD 06/28/2025 03:09 PM EDT
== END 2025-06-28 14:22 | disposition home or self-care (01) ==
LOC: HO.US 14:21
PROVIDERS: PCP Internal Medicine; Visit Provider Internal Medicine
DX: L72.9 Follicular cyst of the skin and subcutaneous tissue, unspecified (principal)
CPT/HCPCS: 76870

== ENCOUNTER → 2025-06-28 14:24 | Outpatient (BNV) | payer OTHER, SELFPAY | PROVIDERS: PCP Internal Medicine; Visit Provider Radiology Diagnostic Radiology | DX: L72.9 Follicular cyst of the skin and subcutaneous tissue, unspecified (principal) | CPT/HCPCS: 76870 ==

== ENCOUNTER 2025-09-13 15:03 | Outpatient (AMB) | payer OTHER, SELFPAY ==
--- NOTE | 2025-09-13 15:07 | MHC.PC.OV ---
Vital Signs 09/13/25 15:08 Height 5 ft 8 in Weight 173 lb BMI 26.3 BP 130/82 Blood Pressure Location Lt brachial Position Sitting Pulse 91 Pulse Source Pulse Oximeter Temp 97.3 F Temp Source Temporal Artery Scan Pulse Oximetry (%) 97 Oxygen Delivery Method Room Air Intake Visit Reasons: Tick bite Allergies bee pollen (BEE STINGS) Allergy (Mild, Verified 09/13/25 15:10) SWELLING Tobacco use date assessed: 09/13/25 Dental Screening Dental Screen Date: 09/13/25 Did you have a dental visit in the last 12 months?: Yes Did you have a dental problem in the last 6 months where you did not have access to dental care?: No Was dental information given to patient?: Patient has dentist HPI HPI Comments History of Present Illness Details The patient is a 50-year-old male presenting with concerns related to a recent tick bite received [place]. The patient noticed the tick, a female Ixodes scapularis per his description, on his abdomen on Friday evening (two days ago) and not sure for how long it has been attached. No symptoms such as fever, headaches, muscle aches, or joint aches were reported. Patient reports a prior history of tick-borne disease. [facility] Medical History Scrotal cyst Blood pressure elevated without history of HTN Hyperhidrosis Elevated cholesterol Anxiety Colon cancer screening Lyme disease HSV-1 infection Surgical History Hx of colonoscopy Epidural hematoma Family History Mother Mental illness in member of household Breast cancer Father Stomach cancer Brother No problems noted. Brother Substance abuse Maternal Aunt Bone cancer Maternal Grandmother Myocardial infarct Social History Housing: House Alcohol intake: never Patient Tobacco Use Status: Never used Tobacco e-Cigarette/Vaping Use: Never Used Second Hand Smoke Exposure: No service: Yes Current occupational status: employed Current occupational exposures/hazards: No Cognitive needs: No Hearing needs: No Vision needs: Yes (Glasses) Questionnaire PHQ-9 Over the last 2 weeks, how often have you been bothered by any of the following problems? 1. Little interest or pleasure in doing things: not at all 2. Feeling down, depressed, or hopeless: not at all 3. Trouble falling or staying asleep, or sleeping too much: not at all 4. Feeling tired or having little energy: not at all 5. Poor appetite or overeating: not at all 6. Feeling bad about yourself - or that you are a failure or have let yourself or your family down: not at all 7. Trouble concentrating on things, such as reading the newspaper or watching television: not at all 8. Moving or speaking so slowly that other people could have noticed. Or the opposite - being so fidgety or restless that you have been moving around a lot more than usual: not at all 9. Thoughts that you would be better off or of hurting yourself in some way: not at all Total score: 0 Depression Screening Interpretation: Negative Depression Screening Done: Yes Source: Developed by Drs. Rodney Bell, Cassie Quezada, Mehrdad Ramírez and colleagues, with an educational bill from [employer]. Thrive Questionnaire Date Thrive assessed: 04/20/25 I am a: Patient What is your living situation today?: I have a steady place to live Within the past 12 months, did the food you bought not last and you didn't have the money to get more?: Never true Within the past 12 months, did you worry whether your food would run out before you got money to buy more?: Never true Do you have trouble paying for medicines?: No Do you have trouble getting transportation to medical appointments?: No Do you have trouble paying your heating and electricity bill?: No Do you have trouble taking care of your child, family member or friend?: No Do you have trouble with day-to-day activities such as bathing, preparing meals, shopping, managing finances, etc.?: No Are you currently unemployed and looking for a job?: No Are you interested in more education?: I choose not to answer this question Please select the resources that you would like help with: None Currently or been in a relationship where the following occur: No concerns reported THRIVE Score: 0 AUDIT C Alcohol Use Questionnaire (AUDIT-C) 1. How often do you have a drink containing alcohol?: Never 3. How often do you have six or more drinks on one occasion?: Never Total Score: 0 ANNA-7 AMB Questionnaire ANNA-7 Date ANNA - 7 assessed: 04/20/25 Feeling nervous, anxious, or on edge: 1 = Several days Not being able to stop or control worryin = Not at all Worrying too much about different things: 0 = Not at all Trouble relaxin = Not at all Being so restless that it is hard to sit still: 0 = Not at all Becoming easily annoyed or irritable: 0 = Not at all Feeling afraid as if something awful might happen: 0 = Not at all Total ANNA-7 score (0-4 normal; 5-9 mild; 10-14 moderate; 15-21 severe): 1 Source: Developed by Drs. Rodney Bell, Cassie Quezada, Mehrdad Ramírez and colleagues, with an educational bill from [employer]. Physical exam (Primary Care) Vital Signs: Last Vital Signs Temp 97.3 F 09/13/25 15:08 Pulse 91 09/13/25 15:08 BP 130/82 09/13/25 15:08 Pulse Ox 97 09/13/25 15:08 Oxygen Delivery Method Room Air 09/13/25 15:08 General: Well-appearing, alert, oriented ?3, in no acute distress. Skin: There is a single erythematous papule on the left lower abdomen, approximately 4-5 mm in diameter with a central punctum with surrounding area showing erythema. No purulent drainage. No bull's eye or target like rash observed. No lesions elsewhere. BMI result Body Mass Index 26.3 Tobacco/Smoking Status: Tobacco use Status Tobacco use date assessed 09/13/25 09/13/25 15:09 Patient Tobacco Use Status Never used Tobacco 09/13/25 15:09 e-Cigarette/Vaping Use Never Used 09/13/25 15:09 PHQ-9: PHQ-9 Score PHQ-9: Total score 0 09/13/25 15:09 Depression Screening Interpretation: Negative Thrive Assessment: Date of Thrive Assessment Date Thrive assessed 04/20/25 09/13/25 15:09 Currently or been in a relationship where the following occur: No concerns reported Coding Level of Care Code Est Pt Level 3 (30594) Diagnoses Tick bite of abdominal wall, initial encounter S30.861A; W57.XXXA Encounter type: initial encounter Site of tick bite: abdominal wall Assessment & Plan Assessment & Plan (1) Tick bite: Code(s): W57.XXXA - Bitten or stung by nonvenomous insect and other nonvenomous arthropods, initial encounter Qualifiers: Encounter type: initial encounter Site of tick bite: abdominal wall Qualified Code(s): S30.861A - Insect bite (nonvenomous) of abdominal wall, initial encounter; W57.XXXA - Bitten or stung by nonvenomous insect and other nonvenomous arthropods, initial encounter Plan: Patient reports a tick bite after a [place]. The patient noticed the tick, a female Ixodes scapularis per his description, on his abdomen on Friday evening (two days ago) and not sure for how long it has been attached. No symptoms such as fever, headaches, muscle aches, or joint aches were reported. -will start doxycycline 100 mg twice a day for 14 days -obtain CBC and CMP -obtain Babesia smear, if positive will require more antibiotics. Orders: Orders Comprehensive Met. Panel Today S30.861A - Insect bite (nonvenomous) of abdominal wall, initial encounter, W57.XXXA - Bitten or stung by nonvenomous insect and other nonvenomous arthropods, initial encounter Malaria Babesia Smear Today S30.861A - Insect bite (nonvenomous) of abdominal wall, initial encounter, W57.XXXA - Bitten or stung by nonvenomous insect and other nonvenomous arthropods, initial encounter Complete Blood Count Auto Diff Today S30.861A - Insect bite (nonvenomous) of abdominal wall, initial encounter, W57.XXXA - Bitten or stung by nonvenomous insect and other nonvenomous arthropods, initial encounter Medications: New doxycycline hyclate 100 mg PO BID 28 tabs 0RF 14 days
[2025-09-13 15:08] VITALS: BP 130/82; PULSE 91; TEMP 36.3; O2SAT 97; BMI 26.3
== END 2025-09-13 15:30 | disposition home or self-care (01) ==
LOC: HO.HMCH 15:03
PROVIDERS: PCP Internal Medicine; Visit Provider Student in an Organized Health Care Education/Training Program
DX: S30.861A Insect bite (nonvenomous) of abdominal wall, initial encounter (principal); W57.XXXA Bitten or stung by nonvenomous insect and other nonvenomous arthropods, initial encounter

== ENCOUNTER 2025-09-13 15:03 | Outpatient (REF) | payer OTHER, SELFPAY ==
[2025-09-13 15:46] LABS: MANUAL DIFF FLAG NO
[2025-09-13 17:19] LABS: Hematocrit 42.0 % (42.0-52.0); Hemoglobin 14.1 g/dl (14.0-18.0); Imm Gran Abs Auto 0.02 X10*3/uL (0.00-0.03); Imm Gran Pct Auto 0.2 % (0.0-0.4); Lymphocytes Absolute Auto 2.3 X10*3/uL (1.2-4.9); Mean Corpuscular HGB Conc 33.6 g/dl (31.0-36.0); Mean Corpuscular Hemoglobin 29.6 pg (27.0-33.0); Mean Corpuscular Volume 88.2 fL (80.0-98.0); NRBC Abs Auto 0.000 X10*3/uL (0.0-0.012); NRBC Pct Auto 0.0 /100WBC (0.0-0.2); Platelet Count 270 X10*3/uL (160-400); Red Blood Count 4.76 X10*6/uL (4.60-5.80); White Blood Count 8.2 X10*3/uL (4.8-10.8)
[2025-09-13 18:07] LABS: Alanine Aminotransferase 27 U/L (0-40); Albumin Level 4.7 g/dL (3.5-5.0); Alkaline Phosphatase 81 U/L (39-117); Anion Gap 13 (12-20); Aspartate Amino Transferase 27 U/L (5-37); Blood Urea Nitrogen 16 mg/dL (9-16); Calcium 9.6 mg/dL (8.4-10.2); Carbon Dioxide 28 mmol/L (22-29); Chloride 106 mmol/L (96-108); Estimated Glomerular Filt Rate > 60; Potassium 4.4 mmol/L (3.3-5.1); Sodium 143 mmol/L (135-145); Total Protein 7.5 g/dL (6.5-8.0)
== END 2025-09-13 15:04 | disposition home or self-care (01) ==
LOC: HO.LAB 15:03
PROVIDERS: PCP Internal Medicine; Visit Provider Student in an Organized Health Care Education/Training Program
DX: S30.861A Insect bite (nonvenomous) of abdominal wall, initial encounter (principal); E78.00 Pure hypercholesterolemia, unspecified; W57.XXXA Bitten or stung by nonvenomous insect and other nonvenomous arthropods, initial encounter; Y93.79 Activity, other specified sports and athletics; Y92.828 Other wilderness area as the place of occurrence of the external cause; Y99.9 Unspecified external cause status
CPT/HCPCS: 36415; 80053; 85025; 87207; 96127